=== PATIENT | male | born 1975 | race Caucasian/White ===

== ENCOUNTER → 2020-05-21 | Outpatient (CLI) | payer OTHER ==
[~2020-05-21] MED LIST: BENTYL 20MG TAB20 MG PO; CYMBALTA60 MG PO; FENOFIBRATE160 MG PO; HYDROCHLOROTHIA25 MG PO; METHOCARBAMOL500 MG PO; PROTONIX 40 MG40 M1 PO; VOLTAREN100 GM TP; ZESTRIL10 MG PO; ZOFRAN4 MG PO
== END ==
LOC: EXRD 15:08
DX: N28.9 Disorder of kidney and ureter, unspecified (principal)
CPT/HCPCS: 76775